=== PATIENT | female | born 1975 | race Caucasian/White ===

== ENCOUNTER → 2019-08-31 10:41 | Outpatient (CLI) | payer BC, SELFPAY ==
--- NOTE | ~2019-08-31 | MM_ITS ---
EXAMINATION: MM screening [facility] BI w rosalio HISTORY: Screening mammogram TECHNIQUE: Craniocaudal and mediolateral oblique 3-D tomosynthesis images were obtained and synthetic 2-D images were generated. CAD analysis was submitted and interpreted. COMPARISON: Comparison to multiple prior studies sequentially, with oldest reviewed study dated 01/01. BREAST PARENCHYMAL COMPOSITION: There are scattered areas of fibroglandular density. FINDINGS: There is no evidence of suspicious mass, calcification, or architectural distortion to sugg est malignancy in either breast. There has been no suspicious interval change. IMPRESSION: 1. No mammographic evidence of malignancy. 2. Recommend routine screening mammography in one year. BI-RADS Category 1: Negative Reviewed, dictated and finalized at location A. TRICAL MAINTENANCE MAN
== END ==
PROVIDERS: Visit Provider Nurse Practitioner
DX: Z12.31 Encounter for screening mammogram for malignant neoplasm of breast (principal)
CPT/HCPCS: 77063; 77067

== ENCOUNTER → 2020-09-10 00:21 | Outpatient (CLI) | payer BC, SELFPAY ==
[2020-09-10 18:03] LABS: SARS-CoV-2 RNA PCR Negative
== END ==
PROVIDERS: Visit Provider Internal Medicine Gastroenterology
DX: Z01.812 Encounter for preprocedural laboratory examination (principal); Z20.822 Contact with and (suspected) exposure to COVID-19
CPT/HCPCS: C9803; U0003; U0005

== ENCOUNTER 2020-09-13 00:18 | Day surgery (SDC) | payer BC, SELFPAY ==
[2020-08-30 10:08] VITALS: BMI 57.9
[2020-09-13 06:30] VITALS: BP 148/79; PULSE 92; RESP 17; TEMP 36.5; O2SAT 92
[2020-09-13] MEDS: LACTATED RINGERS 1,000 ML 150 ML IV CONT (06:39)
--- NOTE | 2020-09-13 07:33 | P.CONGI_ITS ---
GI Consult Note Consult date/time: 09/13/20 07:33 HPI: This very pleasant lady's here for colonoscopy. This very pleasant lady seen in consultation request the primary physician. Impression: Screening colonoscopy. Obesity. Irritable bladder. Recommendation: Colonoscopy. History: This very pleasant lady's here for screening colonoscopy. She has never had a colonoscopy. Her GI review systems negative. She does have a history of severe snoring. No documented obstructive sleep apnea. Physical examination: General: very pleasant patient in no acute distress. HEENT: Head was normocephalic sclerae is clear mouth without masses neck was supple. Heart: Rate rhythm regular without S3 or S4. Lungs: CTA. Abdomen: Soft with no guarding or rigidity. Bowel sounds were active. Neurologic: Cranial nerves 2 through 12 intact. No focal defects. No clonus. Musculoskeletal system: Revealed no joint tenderness or swelling no muscle atrophy. Extremities: Reveal no significant edema. Skin: Warm and dry with normal turgor. Mental status: intact. Patient is alert and oriented. Review of Systems Review of Systems: All systems reviewed & are unremarkable except as noted in HPI and below [facility] Family History Family History (Updated 10/10/16 @ 23:56 by DOCTOR UNKNOWN) Mother Hypertension Father Hypertension Family history of kidney disease Family history of diabetes mellitus in first degree relative Grandparent Family history of malignant neoplasm of breast, Onset Age: 75 Acute myocardial infarction, Onset Age: 74 Social History Social History Smoking packs per day: 0.5 Smoking cigarettes per day: 10.0 Years smoked: 20 Smoking pack-years: 10.00 Smoking status: Former smoker Smoking end date: 07/06/11 Alcohol intake: current Drinks per week: 2 Living arrangements: with family Gender identity (if verbalized by the patient): Female Spiritual care concerns: No Meds Home Medications and Allergies Home Medications Medication Instructions Recorded Confirmed Type ergocalciferol (vitamin D2) 1,250 mcg PO WEEKLY 08/30/20 09/13/20 History solifenacin [Vesicare] 5 mg PO DAILY 08/30/20 09/13/20 History Allergies Allergy/AdvReac Type Severity Reaction Status Date / Time Sulfa (Sulfonamide Allergy Unknown Rash Verified 09/13/20 06:29 Antibiotics) Vital Signs Vital Signs - 24 hr 09/13/20 06:30 Temperature 36.5 C Pulse Rate 92 Respiratory Rate 17 Blood Pressure 148/79 H Pulse Oximetry 92
--- NOTE | 2020-09-13 08:00 | WPDANESEPPF ---
Anes - Initial Pre Proc Eval Procedure: Operation Date: 09/13/20 08:00 Proposed Procedures p Screening Colonoscopy - Can Hollingsworth DO Date/Time: 09/13/20 08:00 Surgeon: Can Hollingsworth DO Pre Op Diagnosis: neoplasm screening Patient Data Age: 45 Gender: F Height: 5 ft 4 in Weight: 158.7 kg Last Vital Signs Temp 97.7 F 09/13/20 06:30 Pulse 92 09/13/20 06:30 Resp 17 09/13/20 06:30 BP 148/79 H 09/13/20 06:30 Pulse Ox 92 09/13/20 06:30 Allergies Allergy/AdvReac Type Severity Reaction Status Date / Time Sulfa (Sulfonamide Allergy Unknown Rash Verified 09/13/20 06:29 Antibiotics) Home Medications Medication Instructions Recorded Confirmed Type ergocalciferol (vitamin D2) 1,250 mcg PO WEEKLY 08/30/20 09/13/20 History solifenacin [Vesicare] 5 mg PO DAILY 08/30/20 09/13/20 History Patient hx anesthesia problems: none Family hx anesthesia problems: none PMFSH Family History Family History (Updated 10/10/16 @ 23:56 by DOCTOR UNKNOWN) Mother Hypertension Father Hypertension Family history of kidney disease Family history of diabetes mellitus in first degree relative Grandparent Family history of malignant neoplasm of breast, Onset Age: 75 Acute myocardial infarction, Onset Age: 72 Social History Social History Smoking packs per day: 0.5 Smoking cigarettes per day: 10.0 Years smoked: 20 Smoking pack-years: 10.00 Smoking status: Former smoker Smoking end date: 07/06/11 Alcohol intake: current Drinks per week: 2 Living arrangements: with family Gender identity (if verbalized by the patient): Female Spiritual care concerns: No Anes - Eval Final PreProcedure Day of Procedure 09/13/20 08:00 Patient weight: other (super super morbid obesity) Heart: regular rate and rhythm Lungs: clear to auscultation Airway: Mallampati scale class III Neurological: alert and oriented Last oral intake: >/= 8 hours ASA classification: IV Emergent: no Anesthetic plan: proceed Anesthesia type and monitoring: general GIVS and standard monitoring Informed Consent: The patient's anesthetic plan and its attendant risks and benefits were discussed with the patient/family/POA. Questions were solicited and answers provided to the satisfaction of the patient/family/POA.
[2020-09-13 08:26] VITALS: BP 113/69; PULSE 85; RESP 23; O2SAT 98
[2020-09-13 08:36] VITALS: BP 120/72; PULSE 83; RESP 25; O2SAT 98
[2020-09-13 08:46] VITALS: BP 130/74; PULSE 80; RESP 26; O2SAT 96
== END 2020-09-13 08:50 | disposition home or self-care (01) ==
PROVIDERS: PCP Nurse Practitioner; Visit Provider Internal Medicine Gastroenterology
PROC: 0DJD8ZZ Inspection of Lower Intestinal Tract, Via Natural or Artificial Opening Endoscopic (ICD-10-PCS; CPT 45378; principal; 2020-09-13 08:00)
DX: Z12.11 Encounter for screening for malignant neoplasm of colon (principal); D12.3 Benign neoplasm of transverse colon; K63.5 Polyp of colon; K57.30 Diverticulosis of large intestine without perforation or abscess without bleeding; K64.8 Other hemorrhoids; N32.89 Other specified disorders of bladder; E66.01 Morbid (severe) obesity due to excess calories; Z68.44 Body mass index [BMI] 60.0-69.9, adult; Z87.891 Personal history of nicotine dependence
CPT/HCPCS: 45380; 88305; J2704; J7120

== ENCOUNTER → 2020-09-21 10:04 | Outpatient (CLI) | payer BC, SELFPAY ==
--- NOTE | ~2020-09-21 | MM_ITS ---
EXAMINATION: MM screening [facility] BI w rosalio HISTORY: Screening TECHNIQUE: Craniocaudal and mediolateral oblique 3-D tomosynthesis images were obtained and synthetic 2-D images were generated. CAD analysis was submitted and interpreted. COMPARISON: Comparison to multiple prior studies sequentially, with oldest reviewed study dated 02/2013. BREAST PARENCHYMAL COMPOSITION: There are scattered areas of fibroglandular density. FINDINGS: There is no evidence of suspicious mass, calcification, or architectural distortion to sugg est malignancy in either breast. There has been no suspicious interval change. IMPRESSION: 1. No mammographic evidence of malignancy. 2. Recommend routine screening mammography in one year. BI-RADS Category 1: Negative Reviewed, dictated and finalized at location A.
== END ==
PROVIDERS: Visit Provider Nurse Practitioner
DX: Z12.31 Encounter for screening mammogram for malignant neoplasm of breast (principal)
CPT/HCPCS: 77063; 77067

== ENCOUNTER → 2021-10-07 11:58 | Outpatient (CLI) | payer OTHER, SELFPAY ==
--- NOTE | ~2021-10-07 | MM_ITS ---
EXAMINATION: MM screening [facility] BI w rosalio HISTORY: Screening TECHNIQUE: Craniocaudal and mediolateral oblique 3-D tomosynthesis images were obtained and synthetic 2-D images were generated. CAD analysis was submitted and interpreted. COMPARISON: Comparison to multiple prior studies sequentially, with oldest reviewed study dated 05/06. BREAST PARENCHYMAL COMPOSITION: There are scattered areas of fibroglandular density. FINDINGS: There is no evidence of suspicious mass, calcification, or architectural distortion to sugg est malignancy in either breast. There has been no suspicious interval change. IMPRESSION: 1. No mammographic evidence of malignancy. 2. Recommend routine screening mammography in one year. BI-RADS Category 1: Negative Reviewed, dictated and finalized at location A.
== END ==
PROVIDERS: Visit Provider Nurse Practitioner
DX: Z12.31 Encounter for screening mammogram for malignant neoplasm of breast (principal)
CPT/HCPCS: 77063; 77067

== ENCOUNTER → 2022-10-24 14:40 | Outpatient (CLI) | payer OTHER, SELFPAY ==
--- NOTE | ~2022-10-24 | MM_ITS ---
EXAMINATION: MM screening [facility] BI w rosalio HISTORY: Screening mammogram TECHNIQUE: Craniocaudal and mediolateral oblique 3-D tomosynthesis images were obtained and synthetic 2-D images were generated. CAD analysis was submitted and interpreted. COMPARISON: 10/07/2021, 09/21/2020, 08/31/2019 BREAST PARENCHYMAL COMPOSITION: There are scattered areas of fibroglandular density. FINDINGS: No suspicious mass, calcification, or architectural distortion are identified in either paul ast to suggest malignancy. There has been no suspicious interval change. IMPRESSION: 1. No mammographic evidence of malignancy. 2. Recommend routine screening mammography in one year. BI-RADS Category 1: Negative Reviewed, dictated and finalized at location A.
== END ==
PROVIDERS: PCP Nurse Practitioner; Visit Provider Nurse Practitioner
DX: Z12.31 Encounter for screening mammogram for malignant neoplasm of breast (principal)
CPT/HCPCS: 77063; 77067

== ENCOUNTER 2023-08-26 11:52 | Outpatient (CLI) | payer OTHER, SELFPAY ==
[2023-08-26 12:51] LABS: Alanine Aminotransferase 22 U/L (6-35); Albumin Level 4.2 g/dL (3.5-5.1); Alkaline Phosphatase 75 U/L (38-126); Anion Gap 3 mmol/L (8-16); Aspartate Amino Transferase 26 U/L (14-36); Bilirubin,Total 0.6 mg/dL (0.2-1.3); Blood Urea Nitrogen 15 mg/dL (7-17); Calcium 9.6 mg/dL (8.4-10.2); Carbon Dioxide 31 mmol/L (22-30); Chloride 104 mmol/L (98-107); Estimated Glomerular Filt Rate > 60; Glucose 112 mg/dL (65-110); Potassium 3.9 mmol/L (3.4-5.0); Sodium 138 mmol/L (137-145); Uric Acid 7.2 mg/dL (2.5-7.5)
[2023-08-26 13:15] LABS: Vitamin D 25 Hydroxy 32.4 ng/mL
== END 2023-08-26 11:53 | disposition home or self-care (01) ==
PROVIDERS: PCP Nurse Practitioner; Referring Provider Nurse Practitioner; Visit Provider Podiatrist Foot & Ankle Surgery
DX: E55.9 Vitamin D deficiency, unspecified (principal); M10.9 Gout, unspecified
CPT/HCPCS: 36415; 80053; 82306; 84550

== ENCOUNTER 2023-11-23 09:57 | Outpatient (CLI) | payer OTHER, SELFPAY ==
[2023-11-23 11:06] LABS: Alanine Aminotransferase 26 U/L (6-35); Albumin Level 4.3 g/dL (3.5-5.1); Alkaline Phosphatase 62 U/L (38-126); Anion Gap 5 mmol/L (4-12); Aspartate Amino Transferase 30 U/L (14-36); Bilirubin,Total 0.6 mg/dL (0.2-1.3); Blood Urea Nitrogen 22 mg/dL (7-17); Calcium 9.2 mg/dL (8.4-10.2); Carbon Dioxide 26 mmol/L (22-30); Chloride 107 mmol/L (98-107); Estimated Glomerular Filt Rate > 60; Glucose 99 mg/dL (65-110); Potassium 4.4 mmol/L (3.4-5.0); Sodium 138 mmol/L (137-145); Uric Acid 6.6 mg/dL (2.5-7.5)
== END 2023-11-23 09:58 | disposition home or self-care (01) ==
LOC: ANHLAB 10:00
PROVIDERS: PCP Nurse Practitioner; Visit Provider Podiatrist Foot & Ankle Surgery
DX: M10.079 Idiopathic gout, unspecified ankle and foot (principal)
CPT/HCPCS: 36415; 80053; 84550

== ENCOUNTER 2023-12-21 10:02 | Outpatient (CLI) | payer OTHER, SELFPAY ==
--- NOTE | ~2023-12-21 | MM_ITS ---
EXAMINATION: MM screening [facility] BI w rosalio HISTORY: Screening TECHNIQUE: Craniocaudal and mediolateral oblique 3-D tomosynthesis images were obtained and synthetic 2-D images were generated. CAD analysis was submitted and interpreted. COMPARISON: Comparison to multiple prior studies sequentially, with oldest reviewed study dated 12/2017. BREAST PARENCHYMAL COMPOSITION: Not Dense: Breast are almost entirely fatty. FINDINGS: There is no evidence of suspicious mass, calcification, or architectural distortion to sugg est malignancy in either breast. There has been no suspicious interval change. IMPRESSION: 1. No mammographic evidence of malignancy. 2. Recommend routine screening mammography in one year. BI-RADS Category 1: Negative Reviewed, dictated and finalized at location B.
== END 2023-12-21 10:03 ==
LOC: MICIMG 10:03
PROVIDERS: PCP Nurse Practitioner; Visit Provider Nurse Practitioner
DX: Z12.31 Encounter for screening mammogram for malignant neoplasm of breast (principal)
CPT/HCPCS: 77063; 77067

== ENCOUNTER 2024-12-21 01:08 | Day surgery (SDC) | payer OTHER, SELFPAY ==
[2024-01-27 11:47] VITALS: BMI 51.2
[2024-08-03 08:46] VITALS: BMI 59.3
--- NOTE | 2024-08-15 14:44 | WPDANESEPPF ---
Anes - Initial Pre Proc Eval Procedure: Operation Date: 08/16/24 08:00 Proposed Procedures p Colonoscopy - Aneesh Ashford MD Date/Time: 08/15/24 14:44 Surgeon: Aneesh Ashford MD Pre Op Diagnosis: hx colon polyps Patient Data Age: 48 Gender: F Height: 1.63 m Weight: 156.8 kg Allergies Allergy/AdvReac Type Severity Reaction Status Date / Time Sulfa (Sulfonamide Allergy Unknown Rash Verified 08/03/24 08:43 Antibiotics) Home Medications ?Medication ?Instructions ?Recorded ?Confirmed ?Type solifenacin 5 mg tablet (Vesicare) 5 mg PO DAILY 08/30/20 08/03/24 History allopurinol 300 mg tablet 300 mg PO DAILY 01/27/24 08/03/24 History tirzepatide (weight loss) 5 mg/0.5 5 mg subcut WEEKLY 08/03/24 08/03/24 History mL subcutaneous pen injector (Zepbound) Patient hx anesthesia problems: none Family hx anesthesia problems: none Results Review: All pre-operative results and documents have been reviewed as part of the pre-operative evaluation. [facility] Past Medical History Medical History (Updated 08/15/24 @ 14:47 by Manpreet Santiago Jr., CRNA) Gout History of smoking Morbid obesity with BMI of 50.0-59.9, adult Arthritis TAY (obstructive sleep apnea) Surgical History Surgical History (Updated 08/15/24 @ 14:45 by Manpreet Santiago Jr., CRNA) Hx of tonsillectomy Family History Family History Mother Hypertension Father Hypertension Family history of kidney disease Family history of diabetes mellitus in first degree relative Grandparent Family history of malignant neoplasm of breast, Onset Age: 75 Acute myocardial infarction, Onset Age: 72 Social History Social History Smoking packs per day: 0.5 Smoking cigarettes per day: 10.0 Years smoked: 20 Smoking pack-years: 10.00 Smoking status: Former smoker Tobacco type: cigarettes Smoking end date: 07/06/11 Alcohol intake: current Drinks per week: 2 Substance use type: does not use Living arrangements: with family Gender identity (if verbalized by the patient): Female Spiritual care concerns: No Anes - Eval Final PreProcedure Day of Procedure 08/15/24 14:44 Patient weight: super morbidly obese Results Review: All pre-operative results and documents have been reviewed as part of the pre-operative evaluation. Informed Consent: The patient's anesthetic plan and its attendant risks and benefits were discussed with the patient/family/POA. Questions were solicited and answers provided to the satisfaction of the patient/family/POA.
--- OUTSIDE RECORDS SUMMARY | 2024-08-16 00:41 | XMS_ITS | Clinical Summary ---
Author Organization [facility] Address [address], [address] [address] Phone Care Team Providers Care Federal District Clerk Name Role Phone Tanvi Wadsworthndjeison Schwarz APRN Primary Care Provider [phone] Soco Esteves MD Unavailable [phone] Social History Tobacco Use Types Packs/Day Years Used Date Smoking Tobacco: Never Assessed Comments Unknown Sex and Gender Information Value Date Recorded Sex Assigned at Not on file Legal Sex Female 8:58 PM CDT Gender Identity Not on file Sexual Orientation Not on file Plan of Treatment Health Maintenance Due Date Last Done Comments Hepatitis C Virus (HCV) Screening 1973 TdaP Immunization 1973 Hepatitis B Immunization (1 of 3 - 19+ 3-dose series) 1992 Pap Smear 1994 Cervical Cancer Screening (CCS) 2003 HPV/Cotest 2003 Cologuard 2023 Immunochemical Fecal Occult Blood 2023 Mammogram 2023 Pneumococcal Immunization (5 0+ years) (1 of 1 - PCV) 2023 Zoster Immunization (1 of 2) 2023 Influenza Immunization (#1) 2024 SARS-COV-2 Immunization ( - 2023- season) 2024 Colonoscopy 09/13/2030 09/13/2020 Colorectal Cancer Screening 09/13/2030 Respiratory Syncytial Virus (RSV) Immunization (Adult) (1 - 1-dose 75+ series) 2048 09/13/2020 Meningococcal Immunization (ACWY) Aged Out No longer eligible based on patient's age to complete this topic Pneumococcal Immunization Combined Aged Out No longer eligible based on patient's age to complete this topic Rotavirus Immunization Aged Out No lo nger eligible based on patient's age to complete this topic Procedures Procedure Name Priority Date/Time Associated Diagnosis Comments COLONOSCOPY Routine 09/13/2020 from Last 3 Months or Most Recently Relevant to Health Maintenance Results * HM COLONOSCOPY (09/13/2020) Can Hollingsworth DO PROCEDURE/MINOR SURGICAL ORDERA BLES Final Result from Last 3 Months or Most Recently Relevant to Health Maintenance Insurance [facility] Care Teams Federal District Clerk Relationship Specialty Start Date End Date Divina Wadsworth APRN [address] [place] [id number] PCP - General Advanced Practice Nurse 08/14/20 Soco Esteves MD [address] [facility] [address] [place] [address] Obstetrics & Gynecology 08/14/20
--- OUTSIDE RECORDS SUMMARY | 2024-08-16 00:41 | XMS_ITS | Clinical Summary ---
Author Organization [facility] Address [address] [place] [address] Care Team Providers Care Disk Recordist Name Role Phone ErmelindaDivina Gosia GALDAMEZ Primary Care Provider [phone] Alma Garcia MD Unavailable [phone] Allergies Active Allergy Reactions Criticality Noted Date Comments Sulfa Antibiotics Rash Low 05/13/2019 Medications cyclobenzaprine 10 MG tablet Take 10 mg by mouth 3 (three) times daily as needed. 0 05/13/2019 Active hydrocodone-acet aminophen 10-325 MG tablet TAKE 1 TABLET BY MOUTH EVERY 4 TO 6 HOURS NEEDED . DO NOT EXCEED 5 PER 24 HOURS 0 05/13/2019 Active meloxicam 15 MG tablet Take 15 mg by mouth daily. 0 05/13/2019 Active ibuprofen 800 MG tablet Take 800 mg by mouth every 6 (six) hours as needed for Pain. Active Active Problems Problem Noted Date Diagnosed Date Essential (primary) hypertension 05/16/2019 Chest pain Palpitations SOB (shortness of breath) Overview (05/16/2019): with chest pain Family History Medical History Relation Comments Heart Attack Maternal Grandmother Relation Status Comments Father Maternal Grandfather Maternal Grandmother Paternal Grandfather Paternal Grandmother Social History Tobacco Use Types Packs/Day Years Used Date Smoking Tobacco: Every Day Cigarettes 0.5 10 Smokeless Tobacco: Never Comments:on and off the past 10 years Alcohol Use Standard Drinks/Week Comments Yes 0 (1 standard drink = 0.6 oz pur e alcohol) 1-2 a week AUDIT-C Answer Date Recorded Frequency of Alcohol Consumption Never 05/13/2019 Average Number of Drinks Not on file Frequency of Binge Drinking Not on file 02/2019 Comments Unknown Sex and Gender Information Value Date Recorded Sex Assigned at Not on file Legal Sex Female 2:19 PM RESISTOR WINDER Gender Identity Not on file Sexual Orientation Not on file Last Filed Vital Signs Vital Sign Reading Time Taken Comments Blood Pressure 164/78 05/16/2019 11:13 AM RESISTOR WINDER Pulse 78 05/16/2019 11:13 AM RESISTOR WINDER Temperature - - Respiratory Rate 20 05/16/2019 11:1 3 AM RESISTOR WINDER Oxygen Saturation - - Inhaled Oxygen Concentration - - Weight 150.7 kg (332 lb 3.2 oz) 019 11:13 AM RESISTOR WINDER Height 165.1 cm (5' 5) 05/16/2019 11:1 3 AM RESISTOR WINDER Body Mass Index 55.28 05/16/2019 11:13 AM RESISTOR WINDER Plan of Treatment Health Maintenance Due Date Last Done Comments Cervical Cancer Screening Pa p Smear (Age 30 to 64) Every 3 Years 1973 Colorectal Cancer Screening Colonoscopy (10 Years) 1973 Annual Physical 1976 Pneumococcal Vaccine: Pediat rics (0 to 5 Years) and At-Risk Patients (6 to 64 Years) (1 of 2 - PCV) 1979 Hepatitis C 1991 DTaP, Tdap and Td Vaccines ( 1 - Tdap) 1992 Hepatitis B Vaccines (1 of 3 - 19+ 3-dose series) 1992 Cervical Cancer Screening Pa p with HPV Testing (Age 30 to 64) Every 5 Years 2003 Cervical Cancer Screening with HPV 2003 Mammogram Screening 2013 Zoster Vaccines (1 of 2) 2023 COVID-19 Vaccine ( - 2023-2 5 season) 2024 Influenza Adult (#1) 2024 Meningococcal B Vaccine Aged Out No l onger eligible based on patient's age to complete this topic Meningococcal Vaccine Aged Out No mayra tish eligible based on patient's age to complete this topic RSV Immunizations Under 20 Months Aged Out No longer eligible based on patient's age to complete this topic Insurance Care Teams Disk Recordist Relationship Specialty Start Date End Date Divina Wadsworth NP [address] [place] [phone] PCP - General NURSE PRACTITIONER 05/13/19 Alma Garcia MD [address] [place] [phone] Consulting Physician INTERVENTIONAL CARDIOLOGY 05/13/19
--- OUTSIDE RECORDS SUMMARY | 2024-08-16 00:41 | XMS_ITS | Encounter Summary ---
Author Organization [facility] Address [address] [place] [address] Care Team Providers Care Hand Stripper Name Role Phone Divina Wdasworth EMERGENCY COMMUNICATIONS OPERATOR Primary Care Provider [phone] Alma Garcia MD Unavailable Encounter Details Date Type Department Care Team (Late st Contact Info) Description 05/13/2019 Abstract [facility] [address] [place] [address] Abstract, Doc [facility] Social History Tobacco Use Types Packs/Day Years Used Date Smoking Tobacco: Every Day Smokeless Tobacco: Never Alcohol Use Standard Drinks/Week Comments No 0 (1 standard drink = 0.6 oz pur e alcohol) AUDIT-C Answer Date Recorded Frequency of Alcohol Consumption Never 05/13/2019 Average Number of Drinks Not on file 019 Frequency of Binge Drinking Not on file 02/2019 Comments Unknown Sex and Gender Information Value Date Recorded Sex Assigned at Not on file Legal Sex Female 2:19 PM PROTECTION OFFICER Gender Identity Not on file Sexual Orientation Not on file documented as of this encounter Plan of Treatment Not on file documented as of this encounter Visit Diagnoses Not on filedocumented in this encounter Care Teams Hand Stripper Relationship Specialty Start Date End Date Divina Wadsworth NP [address] [place] [phone] PCP - General NURSE PRACTITIONER 05/13/19 Alma Garcia MD [address] [place] [phone] Consulting Physician INTERVENTIONAL CARDIOLOGY 05/13/19 documented as of this encounter
[2024-12-08 13:30] VITALS: BMI 59.3
--- OUTSIDE RECORDS SUMMARY | 2024-12-21 01:10 | XMS_ITS | Encounter Summary ---
Author Organization [facility] Address [address] [place] [address] Care Team Providers Care Senior Audit Manager Name Role Phone Divina Wadsworth NP Primary Care Provider [phone] Alma Garcia MD Unavailable Encounter Details Date Type Department Care Team (Late st Contact Info) Description 05/13/2019 Abstract [facility] [address] [place] [address] Abstract, Doc [facility] Social History Tobacco Use [...] on file Legal Sex Female 2:19 PM BOBBIN TRUCKER Gender Identity Not on file Sexual Orientation Not on file documented as of this encounter Functional Status documented as of this encounter Plan of Treatment Not on file documented as of this encounter Visit Diagnoses Not on filedocumented in this encounter Care Teams Senior Audit Manager Relationship Specialty Start Date End Date Divina Wadsworth NP [address] [place] [phone] PCP - General NURSE PRACTITIONER 05/13/19 Alma Garcia MD [address] [place] [phone] Consulting Physician INTERVENTIONAL CARDIOLOGY 05/13/19 documented as of this encounter
--- OUTSIDE RECORDS SUMMARY | 2024-12-21 01:10 | XMS_ITS | Clinical Summary ---
Author Organization [facility] Address [address], [address] [address] Phone Care Team Providers Care Throw Out Clerk Name Role Phone Divina Wadsworth APRN Primary Care Provider [phone] Soco Esteves MD Unavailable [phone] Social History Tobacco Use Types Packs/Day Years [...] (Adult) (1 - 1-dose 75+ series) 2048 Meningococcal Immunization (ACWY) Aged Out No longer [...] Recently Relevant to Health Maintenance Results * COLONOSCOPY (09/13/2020) Can Hollingsworth DO PROCEDURE/MINOR SURGICAL ORDERA BLES Final Result from Last 3 Months or Most Recently Relevant to Health Maintenance Insurance [facility] Care Teams Throw Out Clerk Relationship Specialty Start Date End Date Divina Wadsworth APRN [address] [place] [address] PCP - General Advanced Practice Nurse 08/14/20 Soco Esteves MD [address] [address] Obstetrics & Gynecology 08/14/20
--- OUTSIDE RECORDS SUMMARY | 2024-12-21 01:11 | XMS_ITS | Clinical Summary ---
Author Organization [facility] Address [address] [place] [address] Care Team Providers Care Ledger Clerk Name Role Phone ErmelindaDivina Gosia GALDAMEZ Primary Care Provider [phone] Alma Garcia MD Unavailable [phone] Allergies Active Allergy Reactions Criticality Noted [...] on file Legal Sex Female 2:19 PM FULL STACK SOFTWARE DEVELOPER Gender Identity Not on file Sexual Orientation Not on file Last Filed Vital Signs Vital Sign Reading Time Taken Comments Blood Pressure 164/78 05/16/2019 11:13 AM FULL STACK SOFTWARE DEVELOPER Pulse 78 05/16/2019 11:13 AM FULL STACK SOFTWARE DEVELOPER Temperature - - Respiratory Rate 20 05/16/2019 11:1 3 AM FULL STACK SOFTWARE DEVELOPER Oxygen Saturation - - Inhaled Oxygen Concentration - - Weight 150.7 kg (332 lb 3.2 oz) 019 11:13 AM FULL STACK SOFTWARE DEVELOPER Height 165.1 cm (5' 5) 05/16/2019 11:1 3 AM FULL STACK SOFTWARE DEVELOPER Body Mass Index 55.28 05/16/2019 11:13 AM FULL STACK SOFTWARE DEVELOPER Plan of Treatment Health Maintenance Due Date Last Done Comments Cervical Cancer Screening Pa p Smear (Age 30 to 64) Every 3 Years 1973 Colorectal Cancer Screening Colonoscopy (10 Years) 1973 Annual Physical 1976 Hepatitis C 1991 DTaP, Tdap and Td Vaccines ( 1 - Tdap) 1992 Hepatitis B Vaccines (1 of 3 - 19+ 3-dose series) 1992 Pneumococcal Vaccine: 50+ Ye ars (1 of 2 - PCV) 1992 Cervical Cancer Screening Pa p with HPV Testing (Age 30 to 64) Every 5 Years 2003 Cervical Cancer Screening with HPV 2003 Mammogram Screening 2013 Zoster Vaccines (1 of 2) 2023 COVID-19 Vaccine (1 - 2023-2 5 season) 2024 Meningococcal B Vaccine Aged Out No l onger eligible based on patient's age to complete this topic Meningococcal Vaccine Aged Out No mayra tish eligible based on patient's age to complete this topic RSV Immunizations Under 20 Months Aged Out No longer eligible based on patient's age to complete this topic Insurance [place] [address] Care Teams Ledger Clerk Relationship Specialty Start Date End Date Divina Wadsworth NP [address] [place] [phone] PCP - General NURSE PRACTITIONER 05/13/19 Alma Garcia MD [address] [place] [phone] Consulting Physician INTERVENTIONAL CARDIOLOGY 05/13/19
[2024-12-21 09:10] VITALS: BP 158/83; PULSE 80; RESP 16; TEMP 36.6; O2SAT 100; BMI 56.2
[2024-12-21] MEDS: LACTATED RINGERS 1,000 ML 150 ML IV CONT (09:36)
--- NOTE | 2024-12-21 09:57 | WPDANESEPPF ---
Anes - Initial Pre Proc Eval Procedure: Operation Date: 12/21/24 10:30 Proposed Procedures p Colonoscopy - Aneesh Ashford MD Date/Time: 12/21/24 09:57 Surgeon: Aneesh Ashford MD Pre Op Diagnosis: hx colon polyps Patient Data Age: 49 Gender: F Height: 1.63 m Weight: 148.6 kg Last Vital Signs Temp 97.8 F 12/21/24 09:10 Pulse 80 12/21/24 09:10 Resp 16 12/21/24 09:10 BP 158/83 H 12/21/24 09:10 Pulse Ox 100 12/21/24 09:10 O2 Del Method Room Air 12/21/24 09:10 Allergies Allergy/AdvReac Type Severity Reaction Status Date / Time Sulfa (Sulfonamide Allergy Unknown Rash Verified 12/21/24 09:18 Antibiotics) Home Medications ?Medication ?Instructions ?Recorded ?Confirmed ?Type solifenacin 5 mg tablet (Vesicare) 5 mg PO DAILY 08/30/20 12/21/24 History allopurinol 300 mg tablet 300 mg PO DAILY 01/27/24 12/21/24 History tirzepatide (weight loss) 5 mg/0.5 5 mg subcut WEEKLY 08/03/24 12/21/24 History mL subcutaneous pen injector (Zepbound) phentermine 37.5 mg tablet 37.5 mg PO DAILY 12/21/24 12/21/24 History Patient hx anesthesia problems: none Family hx anesthesia problems: none Results Review: All pre-operative results and documents have been reviewed as part of the pre-operative evaluation. [facility] Past Medical History Medical History (Updated 08/15/24 @ 14:47 by Manpreet Santiago Jr., CRNA) Gout History of smoking Morbid obesity with BMI of 50.0-59.9, adult Arthritis TAY (obstructive sleep apnea) Surgical History Surgical History (Updated 08/15/24 @ 14:45 by Manpreet aSntiago Jr., CRNA) Hx of tonsillectomy Family History Family History Mother Hypertension Father Hypertension Family history of kidney disease Family history of diabetes mellitus in first degree relative Grandparent Family history of malignant neoplasm of breast, Onset Age: 75 Acute myocardial infarction, Onset Age: 74 Social History Social History Smoking packs per day: 0.5 Smoking cigarettes per day: 10.0 Years smoked: 20 Smoking pack-years: 10.00 Smoking status: Former smoker Tobacco type: cigarettes Smoking end date: 07/06/11 Alcohol intake: current Drinks per week: 2 Substance use type: does not use Living arrangements: with family Gender identity (if verbalized by the patient): Female Spiritual care concerns: No Anes - Eval Final PreProcedure Day of Procedure 12/21/24 09:57 Patient weight: super morbidly obese Heart: regular rate and rhythm Lungs: clear to auscultation Airway: Mallampati scale class II Neurological: alert and oriented Last oral intake: >/= 8 hours ASA classification: III Emergent: no Anesthetic plan: proceed Anesthesia type and monitoring: general GIVS and standard monitoring Results Review: All pre-operative results and documents have been reviewed as part of the pre-operative evaluation. Informed Consent: The patient's anesthetic plan and its attendant risks and benefits were discussed with the patient/family/POA. Questions were solicited and answers provided to the satisfaction of the patient/family/POA.
--- NOTE | 2024-12-21 10:01 | PM.HPGS ---
History of Present Illness History of Present Illness Consent: Risks, benefits, and alternatives have been discussed and questions answered. Patient agrees to proceed with procedure. Chief complaint: hx colon polyps Narrative: Monserrat Remy is a 49 year old female with colon polyp in 2020 Review of Systems Review of Systems: All systems reviewed & are unremarkable except as noted in HPI and below PMFSH Past Medical History Medical History (Updated 12/21/24 @ 10:05 by Aneesh Ashford MD) Colon polyp Gout History of smoking Morbid obesity with BMI of 50.0-59.9, adult Arthritis TAY (obstructive sleep apnea) Surgical History Surgical History (Updated 08/15/24 @ 14:45 by Manpreet Santiago Jr., CRNA) Hx of tonsillectomy Family History Family History Mother Hypertension Father Hypertension Family history of kidney disease Family history of diabetes mellitus in first degree relative Grandparent Family history of malignant neoplasm of breast, Onset Age: 75 Acute myocardial infarction, Onset Age: 74 Social History Social History Smoking packs per day: 0.5 Smoking cigarettes per day: 10.0 Years smoked: 20 Smoking pack-years: 10.00 Smoking status: Former smoker Tobacco type: cigarettes Smoking end date: 07/06/11 Alcohol intake: current Drinks per week: 2 Substance use type: does not use Living arrangements: with family Gender identity (if verbalized by the patient): Female Spiritual care concerns: No Meds Home Medications and Allergies Home Medications ?Medication ?Instructions ?Recorded ?Confirmed ?Type solifenacin 5 mg tablet (Vesicare) 5 mg PO DAILY 08/30/20 12/21/24 History allopurinol 300 mg tablet 300 mg PO DAILY 01/27/24 12/21/24 History tirzepatide (weight loss) 5 mg/0.5 5 mg subcut WEEKLY 08/03/24 12/21/24 History mL subcutaneous pen injector (Zepbound) phentermine 37.5 mg tablet 37.5 mg PO DAILY 12/21/24 12/21/24 History Allergies Allergy/AdvReac Type Severity Reaction Status Date / Time Sulfa (Sulfonamide Allergy Unknown Rash Verified 12/21/24 09:18 Antibiotics) Vital Signs Vital Signs - 24 hr 12/21/24 09:10 Temperature 97.8 F Pulse Rate 80 Respiratory Rate 16 Blood Pressure 158/83 H Pulse Oximetry 100 Oxygen Delivery Room Air Exam Const: General: comfortable and no acute distress HENMT: Face/Nose/Sinus: Normal nares present Eyes: General: appearance normal, both eyes and all related structures Neck: Neck: no JVD Resp: Auscultation: clear to auscultation bilaterally Cardio: Rate: regular rate Rhythm: regular rhythm GI: Inspection: non-distended GI Palp: Yes Soft to palpation Skin: General skin exam: normal color Neuro: Speech: normal speech Extrem: General: normal to inspection Psych: Mental Status: mental status grossly normal Assessment and Plan Assessment and plan (1) Colon polyp: Code(s): K63.5 - Polyp of colon Status: Acute Assessment and Plan: colonoscopy
[2024-12-21 10:16] LABS: BEDSIDEPREGUCG Negative (Negative)
[2024-12-21 10:18] VITALS: BP 116/70; PULSE 95; RESP 20; O2SAT 99
[2024-12-21 10:28] VITALS: BP 130/65; PULSE 79; RESP 24; O2SAT 98
[2024-12-21 10:38] VITALS: BP 127/63; PULSE 77; RESP 26; O2SAT 98
== END 2024-12-21 10:48 | disposition home or self-care (01) ==
PROVIDERS: PCP Nurse Practitioner; Referring Provider Nurse Practitioner; Visit Provider Internal Medicine Gastroenterology
PROC: 0DJD8ZZ Inspection of Lower Intestinal Tract, Via Natural or Artificial Opening Endoscopic (ICD-10-PCS; CPT 45378; principal; 2024-12-21 10:30)
DX: Z12.11 Encounter for screening for malignant neoplasm of colon (principal); K64.8 Other hemorrhoids; K57.30 Diverticulosis of large intestine without perforation or abscess without bleeding; K62.89 Other specified diseases of anus and rectum; G47.33 Obstructive sleep apnea (adult) (pediatric); M19.90 Unspecified osteoarthritis, unspecified site; E66.01 Morbid (severe) obesity due to excess calories; Z68.43 Body mass index [BMI] 50.0-59.9, adult; Z79.85 Long-term (current) use of injectable non-insulin antidiabetic drugs; Z98.890 Other specified postprocedural states; Z87.891 Personal history of nicotine dependence; Z86.0100 Personal history of colon polyps, unspecified; Z80.3 Family history of malignant neoplasm of breast; Z82.49 Family history of ischemic heart disease and other diseases of the circulatory system
CPT/HCPCS: 45378; J2003; J2704; J7120

== ENCOUNTER 2024-12-30 09:44 | Outpatient (CLI) | payer OTHER, SELFPAY ==
--- NOTE | ~2024-12-30 | MM_ITS ---
EXAMINATION: MM screening [facility] BI w rosalio HISTORY: Screening mammogram TECHNIQUE: Craniocaudal and mediolateral oblique 3-D tomosynthesis images were obtained and synthetic 2-D images were generated. CAD analysis was submitted and interpreted. COMPARISON: 12/21/2023, 10/24/2022, 10/07/2021, 09/21/2020 BREAST PARENCHYMAL COMPOSITION:Not Dense. The breasts are almost entirely fatty FINDINGS: No suspicious mass, calcification, or architectural distortion are identified in either paul ast to suggest malignancy. There has been no suspicious interval change. IMPRESSION: No mammographic evidence of malignancy. Recommend routine screening mammography in one year. BI-RADS Category 1: Negative Reviewed, dictated and finalized at location .
== END 2024-12-30 09:45 | disposition home or self-care (01) ==
LOC: MICIMG 09:45
PROVIDERS: PCP Nurse Practitioner; Visit Provider Nurse Practitioner
DX: Z12.31 Encounter for screening mammogram for malignant neoplasm of breast (principal)
CPT/HCPCS: 77063; 77067

== ENCOUNTER 2025-01-10 15:47 | Outpatient (CLI) | payer OTHER, SELFPAY ==
--- OUTSIDE RECORDS SUMMARY | 2025-01-10 15:50 | XMS_ITS | Clinical Summary ---
Author Organization [facility] Address [address] [place], [address] [address] Phone Care Team Providers Care Molder Sweep Name Role Phone Divina Wadsworth APRN Primary Care Provider [phone] Soco Esteves MD Unavailable [phone] Social History Tobacco Use Types Packs/Day Years [...] Most Recently Relevant to Health Maintenance Insurance [facility] Care Teams Molder Sweep Relationship Specialty Start Date End Date Divina Wadsworth APRN [address] [place] [address] PCP - General Advanced Practice Nurse 08/14/20 Soco Esteves MD [address] [address] Obstetrics & Gynecology 08/14/20
[2025-01-10 16:43] LABS: Alanine Aminotransferase 23 U/L (6-35); Albumin Level 4.3 g/dL (3.5-5.1); Alkaline Phosphatase 77 U/L (38-126); Anion Gap 8 mmol/L (4-12); Aspartate Amino Transferase 32 U/L (14-36); Bilirubin,Total 0.4 mg/dL (0.2-1.3); Blood Urea Nitrogen 15 mg/dL (7-17); Calcium 9.4 mg/dL (8.4-10.2); Carbon Dioxide 27 mmol/L (22-30); Chloride 105 mmol/L (98-107); Estimated Glomerular Filt Rate > 60; Glucose 109 mg/dL (65-110); Potassium 4.2 mmol/L (3.4-5.0); Sodium 140 mmol/L (137-145); Total Protein 7.9 g/dL (6.3-8.2); Uric Acid 9.6 mg/dL (2.5-7.5)
== END 2025-01-10 15:48 | disposition home or self-care (01) ==
LOC: ANHLAB 15:49
PROVIDERS: PCP Nurse Practitioner; Visit Provider Podiatrist Foot & Ankle Surgery
DX: M10.071 Idiopathic gout, right ankle and foot (principal)
CPT/HCPCS: 36415; 80053; 84550